=== PATIENT | male | born 1995 | race Caucasian/White ===

== ENCOUNTER 2017-08-27 17:59 | Emergency (ER) | payer BC ==
[2017-08-27 18:08] VITALS: BP 141/74; PULSE 78; RESP 80; TEMP 98.2
--- NOTE | 2017-08-27 18:24 | ED ---
Upper Extremity HPI - General Chief Complaint: Extremity Injury, Upper Stated Complaint: left shoulder pain Time Seen by Provider: 08/27/17 18:10 Source: patient Mode of arrival: ambulatory Limitations: no limitations - History of Present Illness MD Complaint: Injury to:: left, shoulder Onset/Timin -: days(s) Other Injuries: none Handedness: ambidextrous Place: home Severity scale (1-10): 0 Improves With: immobilization Worsens With: movement of extremity (Patient reports left anterior shoulder pain with flexion and extension abduction and adduction at approximately 50) Context: other (Patient states he was lifting a desk and a refrigerator) Associated Symptoms: denies other symptoms Treatments Prior to Arrival: other (None) - Related Data Home Medications Medication Instructions Recorded Confirmed No Known Home Medications [No 08/27/17 08/27/17 Known Home Medications] Allergies Allergy/AdvReac Type Severity Reaction Status Date / Time No Known Allergies Allergy Verified 08/27/17 18:06 Review of Systems ROS Statement: Those systems with pertinent positive or pertinent negative responses have been documented in the HPI. ROS Other: All systems not noted in ROS Statement are negative. Past Medical History Past Medical History: No Reported History History of Any Multi-Drug Resistant Organisms: None Reported Past Surgical History: Adenoidectomy, Tonsillectomy Past Psychological History: No Psychological Hx Reported Smoking Status: Never smoker Past Alcohol Use History: Occasional Past Drug Use History: None Reported General Exam Limitations: no limitations General appearance: alert, in no apparent distress Head exam: Present: atraumatic, normocephalic, normal inspection Eye exam: Present: normal appearance ENT exam: Present: normal exam, mucous membranes moist, normal external ear exam Neck exam: Present: normal inspection, full ROM. Absent: tenderness, meningismus Respiratory exam: Present: normal lung sounds bilaterally. Absent: respiratory distress, wheezes, rales, rhonchi, chest wall tenderness Cardiovascular Exam: Present: regular rate, normal rhythm, normal heart sounds. Absent: systolic murmur GI/Abdominal exam: Present: soft, normal bowel sounds. Absent: distended, tenderness Left Shoulder Exam: Present: normal inspection, tenderness over AC joint. Absent: full ROM (Painful with extension and flexion at approximately 50 and abduction and abduction approximately 50), swelling, abrasion, ecchymosis, deformity, crepitus, erythema Upper Arm exam: Present: normal inspection, full ROM. Absent: tenderness, swelling Elbow exam: Present: normal inspection, full ROM. Absent: tenderness, swelling Forearm Wrist exam: Present: normal inspection, full ROM. Absent: tenderness, swelling Hand Wrist exam: Present: normal inspection, full ROM. Absent: tenderness, swelling Neuro motor exam: Present: wrist extension intact, thumb opposition intact, thumb IP flexion intact, thumb adduction intact, fingers 2-5 abduction intact Neurosensory exam: Present: 2-point discrimination, radial nerve intact, ulnar nerve intact, median nerve intact Vascular: Present: normal capillary refill, radial pulse, brachial pulse, ulnar pulse. Absent: vascular compromise Back exam: Present: normal inspection, full ROM. Absent: tenderness, muscle spasm, paraspinal tenderness, vertebral tenderness Neurological exam: Present: alert, oriented X3, CN II-XII intact, normal gait Psychiatric exam: Present: normal affect, normal mood Skin exam: Present: warm, dry, intact, normal color Course Vital Signs 08/27/17 18:06 Temperature 98.2 F Pulse Rate 78 Respiratory 80 H Rate Blood Pressure 141/74 O2 Sat by Pulse 98 Oximetry Medical Decision Making - Medical Decision Making Left shoulder pain suspect secondary to sprain or strain. X-ray left shoulder negative for dislocation or fracture. Patient provided with a sling for support but instructed to limit use secondary to frozen shoulder. Patient instructed [facility]. Patient instructed to return to the emergency department with any new or worsening symptoms. Patient agrees with treatment plan. Discharge instructions and return parameters reviewed. - Radiology Data Radiology results: report reviewed X-ray left shoulder: No fracture or dislocation. Joint spaces are normal. No pathologic calcifications. Negative left shoulder x-ray. As read by radiologist Dr. Flores. Disposition Clinical Impression: Shoulder pain, left Disposition: HOME SELF-CARE Condition: Good Additional Instructions: Avoid activity that causes pain Ice 20 minutes 4 times a day usually for 2-3 days Wear sling minimally for support and to reduce pain. Continue motrin or tylenol for pain or discomfort. Return to the emergency department with symptoms of increased swelling, pain, numbness, tingling, or hand feeling cold to touch. Follow-up with primary service and orthopedic service as directed. Referrals: Liliana Lobo MD [Primary Care Provider] - 1-2 days Ty Michele MD [STAFF PHYSICIAN] - 1-2 days Time of Disposition: 18:48
--- NOTE | 2017-08-27 18:45 | XR ---
EXAMINATION TYPE: XR shoulder complete LT DATE OF EXAM: 08/27/2017 COMPARISON: NONE HISTORY: Pain TECHNIQUE: 3 views FINDINGS: I see no fracture nor dislocation. Joint spaces are normal. There are no pathologic calcifi cations. IMPRESSION: Negative left shoulder exam
== END 2017-08-27 18:56 | disposition home or self-care (01) ==
LOC: EC 17:59
DX: M25.512 Pain in left shoulder (principal); X50.0XXA Overexertion from strenuous movement or load, initial encounter; Y93.89 Activity, other specified
CPT/HCPCS: 99283

== ENCOUNTER 2018-11-14 01:23 | Emergency (ER) | payer BC, OTHER ==
[2018-11-14 01:28] VITALS: BP 198/125; PULSE 72; RESP 16; TEMP 98.6
[2018-11-14] MEDS ORDERED: DIPH,PERTUS(ACELL)TETVAC-LF 0.5 ML VIAL IM ONE (01:46)
[2018-11-14] MEDS ORDERED: LIDOCAINE 1% INJ 10MG/ML (20 ML MDV) SQ ONE (01:48)
--- NOTE | 2018-11-14 01:57 | ED ---
Upper Extremity HPI - General Source: patient Mode of arrival: ambulatory Limitations: no limitations <Charissa Rosenthal - Last Filed: 11/14/18 03:28> <Sophie Domingo - Last Filed: 11/14/18 07:59> - General Chief Complaint: Extremity Injury, Upper Stated Complaint: R Hand Injury- [facility] Time Seen by Provider: 11/14/18 01:34 - History of Present Illness Initial Comments: 22-year-old male patient presents to the emergency department today for evaluation of injury to the second and third digits on the right hand. Patient states around 1:15 he was at work when he got his fingers caught in a press. Patient states his fingers were crushed. Patient denies any current significant pain. States he does have wounds to the tip of the fingers, there is nail involvement on the third digit. He denies any numbness or tingling to the hand. Denies any other injuries. Patient is unsure when his last tetanus vaccine was given. Patient denies any headache, neck pain, back pain, chest pain , shortness of breath, dizziness, weakness, abdominal pain, nausea, vomiting, or difficulties with bowel movements or urination. (Charissa Rosenthal) - Related Data Previous Rx's Medication Instructions Recorded Cephalexin [Keflex] 500 mg PO Q6H #28 cap 11/14/18 Allergies Allergy/AdvReac Type Severity Reaction Status Date / Time No Known Allergies Allergy Verified 11/14/18 01:28 Review of Systems ROS Other: All systems not noted in ROS Statement are negative. <Charissa Rosenthal - Last Filed: 11/14/18 03:28> ROS Other: All systems not noted in ROS Statement are negative. <Sophie Domingo - Last Filed: 11/14/18 07:59> ROS Statement: Those systems with pertinent positive or pertinent negative responses have been documented in the HPI. Past Medical History Past Medical History: No Reported History History of Any Multi-Drug Resistant Organisms: None Reported Past Surgical History: Adenoidectomy, Tonsillectomy Past Psychological History: No Psychological Hx Reported Smoking Status: Never smoker Past Alcohol Use History: Occasional Past Drug Use History: None Reported <Charissa Rosenthal - Last Filed: 11/14/18 03:28> General Exam Limitations: no limitations General appearance: alert, in no apparent distress, other (Physical well- developed, well-nourished adult male patient in no acute distress. Vital signs upon presentation are temperature 98.6F, pulse 72, respirations 16, blood pressure 198/125, pulse ox 96% on room air.) Respiratory exam: Present: normal lung sounds bilaterally. Absent: respiratory distress, wheezes, rales, rhonchi, stridor Cardiovascular Exam: Present: regular rate, normal rhythm, normal heart sounds. Absent: systolic murmur, diastolic murmur, rubs, gallop, clicks Extremities exam: Present: full ROM, normal capillary refill, other (Right index finger exhibits small laceration to the proximal nail fold, tenderness of the distal phalanx. There is laceration involving the nail to the right middle finger, distal phalanx tenderness. Skin is otherwise pink, warm, and dry. Cap refills less than 3 seconds. Radial pulses are 2+ and equal bilaterally). Absent: normal inspection, tenderness, pedal edema, joint swelling, calf tenderness Neurological exam: Present: alert, oriented X3, CN II-XII intact Psychiatric exam: Present: normal affect, normal mood Skin exam: Present: warm, dry, intact, normal color. Absent: rash <Charissa Rosenthal - Last Filed: 11/14/18 03:28> Vital Signs 11/14/18 01:24 Temperature 98.6 F Pulse Rate 72 Respiratory 16 Rate Blood Pressure 198/125 O2 Sat by Pulse 96 Oximetry Medical Decision Making - Radiology Data Radiology results: report reviewed, image reviewed <Charissa Rosenthal M - Last Filed: 11/14/18 03:28> <Sophie Domingo - Last Filed: 11/14/18 07:59> - Medical Decision Making 22-year-old male patient presented to the emergency department today after getting his fingers crushed in a press at work. Physical examination did reveal a an abrasion to the proximal nail fold on the index finger with some distal phalanx tenderness. Patient did have a laceration through the distal lateral third of the nail on the middle finger, this did involve the nail bed. I feel that it would be safest to leave the nail in place allowed to grow out naturally. X-ray of the right hand did reveal a distal tuft fracture of the index finger. Patient was educated regarding wound care. He was given splint for the finger fracture. We started Keflex for prevention of infection. He is instructed to follow-up with [facility] for further evaluation. Return parameters were discussed in detail. He verbalizes understanding and agrees with this plan (Charissa Rosenthal) I was available for consultation in the emergency department. The history and physical exam were done by the midlevel provider. I was consulted for this patient's care. I reviewed the case with the midlevel provider and based on their presentation of the patient, I agree with the assessment, medical decision making and plan of care as documented. (Sophie Domingo) - Radiology Data 3 views of the right hand are obtained. There is a nondisplaced fracture of the tuft of the distal phalanx of the index finger to the right hand. Metacarpals are intact. Impression by Dr. Flores shows tuft fracture of the distal talus of the index finger. (Charissa Rosenthal) Disposition Is patient prescribed a controlled substance at d/c from ED?: No Time of Disposition: 03:10 <Charissa Rosenthal - Last Filed: 11/14/18 03:28> <Sophie Domingo - Last Filed: 11/14/18 07:59> Clinical Impression: Laceration of right middle finger with damage to nail, Abrasion of right index finger, Fracture of distal phalanx of right index finger Disposition: HOME SELF-CARE Condition: Good Instructions (If sedation given, give patient instructions): Finger Fracture ( ED), Abrasion (ED), Nail Avulsion (ED) Additional Instructions: Complete antibiotic prescription in full. Follow-up with [facility] for further evaluation. Return to the emergency department for any new , worsening, or concerning symptoms Prescriptions: Cephalexin [Keflex] 500 mg PO Q6H #28 cap Referrals: Liliana Lobo MD [Primary Care Provider] - 1-2 days
--- NOTE | 2018-11-14 01:59 | XR ---
EXAMINATION TYPE: XR hand complete RT DATE OF EXAM: 11/14/2018 COMPARISON: NONE HISTORY: Right hand injury TECHNIQUE: 3 views FINDINGS: There is nondisplaced fracture tuft of the distal phalanx of the index finger right hand. M etacarpals are intact.. IMPRESSION: Tuft Fracture of the distal phalanx of the index finger.
[2018-11-14] MEDS ORDERED: ACET/COD 300 MG/30 MG STARTER PACK 6 TAB BTL PO STA (02:34)
--- NOTE | 2018-11-15 01:28 | CDI ---
Documentation Clarification OP Dear Galo Carrington Please provide procedure done related to lidocaine administered. Thank you, [employer] If you have any questions, please contact [facility] [facility] at [phone] I did not end up using lidocaine or repairing the laceration. I will discuss this with nursing to undo the lidocaine documentation. MTDD
== END 2018-11-14 03:59 | disposition home or self-care (01) ==
LOC: EC 01:23
DX: S62.630A Displaced fracture of distal phalanx of right index finger, initial encounter for closed fracture (principal); S61.312A Laceration without foreign body of right middle finger with damage to nail, initial encounter; Z23 Encounter for immunization; W23.0XXA Caught, crushed, jammed, or pinched between moving objects, initial encounter; Y92.69 Other specified industrial and construction area as the place of occurrence of the external cause; Y99.0 Civilian activity done for income or pay
CPT/HCPCS: 99283; 90471; 73130; 90715; J2001